=== PATIENT | female | born 1985 | race Caucasian/White ===

== ENCOUNTER 2019-02-01 09:34 | Emergency (ER) | payer OTHER ==
[~2019-02-01] VITALS: Ht 170.2 cm; Wt 52.2 kg
[2019-02-01 09:51] LABS: URINE BILIRUBIN NEGATIVE (Negative); URINE BLOOD 3+ (Negative); URINE CLARITY CLOUDY; URINE COLOR YELLOW; URINE GLUCOSE-RANDOM* NEGATIVE (Negative); URINE KETONES NEGATIVE (Negative); URINE LEUKOCYTES-REFLEX 1+ (Negative); URINE NITRITE-REFLEX POSITIVE (Negative); URINE PROTEIN (DIPSTICK) 2+ (Negative); URINE SPECIFIC GRAVITY >= 1.030 (1.005-1.035); URINE UROBILINOGEN 0.2 E.U./dl (0.2-1.0)
[2019-02-01 10:03] LABS: BACTERIA-REFLEX >30 Many /HPF (None Seen); CASTS None Seen /LPF (None Seen); CRYSTALS None Seen /LPF (None Seen); MUCUS 0-3 Light strn/LPF (None Seen); SQUAMOUS >10 Many /LPF (0-3); URINE WBC-REFLEX >25 Many /HPF (0-5)
[2019-02-01 10:04] LABS: WBC CLUMPS Few (None Seen)
[2019-02-01 10:34] LABS: HEMATOCRIT 35.8 % (37.0-47.0); HEMOGLOBIN 11.2 gm/dL (12.0-15.0); MCH 24.3 pg (26.0-34.0); MCHC 31.2 g/dL (28.0-37.0); MCV 77.8 fL (80.0-100.0); PLATELET COUNT 328 thou/uL (150-400); RDW 17.7 % (10.5-14.5); WBC 15.1 thou/uL (4.0-11.0)
[2019-02-01 10:38] LABS: CALCIUM 9.3 mg/dL (8.5-10.1); CREATININE 0.8 mg/dL (0.6-1.0); POTASSIUM 3.6 mmol/L (3.5-5.1)
[2019-02-01 11:43] LABS: ABSOLUTE NEUTROPHILS 12.2 thou/uL (1.4-8.2); ATYPICAL LYMPHS 1 %; PLATELET ESTIMATE NORMAL
[2019-02-01 11:44] LABS: ANISOCYTOSIS 1+; HYPOCHROMASIA 1+; MICROCYTES 1+; TOXIC GRANULATION SLIGHT
[2019-02-01 12:54] VITALS: BP 98/58
[2019-02-01] MEDS ORDERED: ZOFRAN ODT4 MG PO (12:56)
[2019-02-01] MEDS ORDERED: ULTRAM 50MG TAB50 MG PO (12:56)
[2019-02-01] MEDS ORDERED: IBUPROFEN 600600 M1 PO (12:56)
[2019-02-01] MEDS ORDERED: KEFLEX500 M2 PO (12:56)
== END 2019-02-01 13:10 | disposition home or self-care (01) ==
LOC: ER 09:34
PROVIDERS: Emergency Medicine
DX: N12 Tubulo-interstitial nephritis, not specified as acute or chronic (principal)

== ENCOUNTER 2019-09-28 21:12 | Emergency (ER) | payer OTHER ==
[~2019-09-28] VITALS: Ht 170.2 cm; Wt 49.9 kg
[~2019-09-28 21:12] MED LIST: IBUPROFEN 600600 M1 PO; KEFLEX500 M2 PO; ULTRAM 50MG TAB50 MG PO; ZOFRAN ODT4 MG PO
[2019-09-28 21:16] VITALS: BP 115/75
== END 2019-09-28 21:42 | disposition left against medical advice (07) ==
LOC: ER 21:12
DX: R21 Rash and other nonspecific skin eruption (principal); Z53.21 Procedure and treatment not carried out due to patient leaving prior to being seen by health care provider

== ENCOUNTER 2020-01-30 08:59 | Emergency (ER) | payer OTHER ==
[~2020-01-30] VITALS: Ht 170.2 cm; Wt 52.2 kg
[2020-01-30] MEDS ORDERED: ZOFRAN ODT4 MG PO (09:36)
[2020-01-30] MEDS ORDERED: AUGMENTIN 875-1 EACH PO (09:36)
[2020-01-30 10:07] VITALS: BP 118/78
== END 2020-01-30 10:09 | disposition home or self-care (01) ==
LOC: ER 08:59
DX: K04.7 Periapical abscess without sinus (principal)